=== PATIENT | female | born 1980 | race Hispanic/Latino ===

== ENCOUNTER 2017-05-17 14:34 | Emergency (ER) | payer BC ==
[2017-05-17] MEDS ORDERED: Bupivacaine 0.5% 10 ML VIAL ONE (14:57)
== END 2017-05-17 16:17 | disposition home or self-care (01) ==
LOC: SCSER 14:34
DX: S61.112A Laceration without foreign body of left thumb with damage to nail, initial encounter (principal); W26.0XXA Contact with knife, initial encounter
CPT/HCPCS: 12001; J3490

== ENCOUNTER 2018-07-01 08:39 | Outpatient (CLI) | payer BC ==
--- NOTE | 2018-07-01 10:31 | ULT ---
LEFT BREAST ULTRASOUND LIMITED: History: Patient presents with a palpable finding at approximately the 3 o'clock position in the left breast. Mammography indicates circumscribed mass with some very thin calcification occasionally seen within t he wall. FINDINGS: Ultrasound evaluation demonstrates an approximately 1.4 cm diameter anechoic cyst in the 3 o'clock po sition approximately 2 cm from the nipple. There is some minimal thin calcium within the wall of this cyst. This corresponds to the mammographic finding and the palpable finding. IMPRESSION: BIRADS category 2 - benign findings. Thin walled cyst at 3 o'clock 2 cm from the nipple. Annual follo w up mammography is recommended. POS: OFF
--- NOTE | 2018-07-01 10:33 | ULT ---
RIGHT BREAST UNILATERAL ULTRASOUND LIMITED: History: 37-year-old female with a left breast palpable finding and abnormal mass in the right breast. FINDINGS: There are several cysts in the right breast, the largest is at 12 o'clock 3 cm from the nipple measur ing approximately 0.7 x 1.3 x 1.7 cm in size. Several other small cysts are noted at 10 o'clock and 1 1 o'clock. IMPRESSION: Multiple right breasts cysts. BIRADS category 2 - benign findings. Continued annual follow up mammogr aphy. POS: OFF
== END 2018-07-01 08:40 | disposition home or self-care (01) ==
LOC: BICMAMMO 08:39
PROVIDERS: ATTEND Internal Medicine
DX: N63.20 Unspecified lump in the left breast, unspecified quadrant (principal); N60.02 Solitary cyst of left breast
CPT/HCPCS: 77066; G0279

== ENCOUNTER 2021-02-15 10:24 | Outpatient (CLI) | payer BC | END 2021-02-15 10:25 | disposition home or self-care (01) | LOC: BICMAMMO 10:24 | PROVIDERS: ATTEND Internal Medicine | DX: Z12.31 Encounter for screening mammogram for malignant neoplasm of breast (principal) | CPT/HCPCS: 77063; 77067 ==

== ENCOUNTER 2022-02-21 09:41 | Outpatient (CLI) | payer BC | END 2022-02-21 09:42 | disposition home or self-care (01) | LOC: BICMAMMO 09:41 | PROVIDERS: ATTEND Internal Medicine | DX: Z12.31 Encounter for screening mammogram for malignant neoplasm of breast (principal) | CPT/HCPCS: 77063; 77067 ==

== ENCOUNTER 2023-02-22 07:51 | Outpatient (CLI) | payer BC | END 2023-02-22 07:52 | disposition home or self-care (01) | LOC: BICMAMMO 07:51 | PROVIDERS: ATTEND Internal Medicine | DX: Z12.31 Encounter for screening mammogram for malignant neoplasm of breast (principal); N63.10 Unspecified lump in the right breast, unspecified quadrant; N60.01 Solitary cyst of right breast | CPT/HCPCS: 77063; 77067 ==

== ENCOUNTER 2023-03-15 08:57 | Outpatient (CLI) | payer OTHER | END 2023-03-15 08:58 | disposition home or self-care (01) | LOC: BICRAD 08:57 | PROVIDERS: ATTEND Internal Medicine | DX: M54.12 Radiculopathy, cervical region (principal); M25.551 Pain in right hip | CPT/HCPCS: 72040 ==

== ENCOUNTER 2023-10-24 07:57 | Outpatient (CLI) | payer BC | END 2023-10-24 07:58 | disposition home or self-care (01) | LOC: BICMAMMO 07:57 | PROVIDERS: ATTEND Internal Medicine | DX: N60.01 Solitary cyst of right breast (principal) | CPT/HCPCS: 19000; 76942; G0279 ==

== ENCOUNTER 2024-03-30 21:19 | Emergency (ER) | payer BC ==
[2024-03-30] MEDS ORDERED: Cyclobenzaprine 10 MG TAB ONE (21:50)
[2024-03-30] MEDS ORDERED: predniSONE 20 MG TAB ONE (21:50)
[2024-03-30] MEDS ORDERED: Ibuprofen 200 MG TAB ONE (21:50)
[2024-03-30 21:52] LABS: #Basophils Less than 0.03 10x3/uL (0.0-0.2); %Basophils 0.3 % (0.0-1.0); %Eosinophils 1.3 % (0.0-10.0); %Lymphocytes 40.1 % (21.0-51.0); Hematocrit 32.7 % (36.0-47.0); Hemoglobin 9.7 g/dL (12.0-16.0); Mean Corpuscular HGB CONC 29.7 g/dL (32.0-36.0); Mean Corpuscular Hemoglobin 22.7 pg (27.0-31.0); Mean Corpuscular Volume 76.6 fL (78.0-98.0); Mean Platelet Volume 11.2 fL (7.4-10.4); Platelet Count 320 10x3/uL (130-400); Red Blood Cell (RBC) Count 4.27 mill/uL (4.20-5.40)
[2024-03-30 22:05] LABS: ALT (SGPT) 14 U/L (8-55); AST (SGOT) 17 U/L (5-34); Albumin 3.9 g/dL (3.5-5.0); Alkaline Phosphatase 68 U/L (40-110); Anion Gap 10 mmol/L (10-20); BUN (Urea Nitrogen) 16 mg/dL (7.0-18.7); Bilirubin, Total 0.5 mg/dL (0.2-1.2); Calc. Creatinine Clearance 0 mL/min (70-130); Carbon Dioxide 25 mmol/L (22-29); Chloride 105 mmol/L (98-107); Estimated GFR 109; Globulin 2.8 g/dL (2.4-3.5); Glucose 107 mg/dL (70-105); Lipase 23 U/L (8-78); Magnesium 1.9 mg/dL (1.6-2.6); Potassium 3.1 mmol/L (3.5-5.1); Protein, Total 6.7 g/dL (6.0-8.3); Sodium 137 mmol/L (136-145)
[2024-03-30 22:11] LABS: Troponin I Less than 0.010 ng/mL (< 0.028)
== END 2024-03-30 23:36 | disposition home or self-care (01) ==
LOC: ERS 21:19
DX: M62.830 Muscle spasm of back (principal)
CPT/HCPCS: 36415; 71045; 80053; 83690; 83735; 84484; 85025; 93005; J7512

== ENCOUNTER 2024-04-03 07:14 | Outpatient (CLI) | payer BC | END 2024-04-03 07:15 | disposition home or self-care (01) | LOC: BICRAD 07:14 | PROVIDERS: ATTEND Internal Medicine | DX: M47.22 Other spondylosis with radiculopathy, cervical region (principal) | CPT/HCPCS: 72040 ==

== ENCOUNTER 2024-04-04 09:01 | Outpatient (CLI) | payer BC | END 2024-04-04 09:02 | disposition home or self-care (01) | LOC: MRI 09:01 | PROVIDERS: ATTEND Internal Medicine | DX: M50.123 Cervical disc disorder at C6-C7 level with radiculopathy (principal) | CPT/HCPCS: 72141 ==